=== PATIENT | female | born 1955 | race African-American/Black ===

== ENCOUNTER 2017-08-30 06:11 | Emergency (ER) | payer OTHER ==
[~2017-08-30] VITALS: Ht 167.6 cm; Wt 112.0 kg
[2017-08-30 07:09] LABS: BASOPHIL % 0.8 % (0-2); PLATELET COUNT 230 x10^3mcL (130-400); RED CELL DISTRIBUTION WIDTH 14.5 % (11.5-14.5)
[2017-08-30 07:11] LABS: CARBON DIOXIDE 28.7 mmol/L (21-32); CHLORIDE SERUM 106 mmol/L (98-107); CREATININE SERUM 0.8 mg/dL (0.6-1.0); GFR1 > 60 mL/min; GLUCOSE SERUM 115 mg/dL (74-106); POTASSIUM SERUM 3.9 mmol/L (3.5-5.1); SODIUM SERUM 142 mmol/L (136-145)
[2017-08-30 07:15] LABS: ALBUMIN 3.6 g/dL (3.4-5.0); ALKALINE PHOSPHATASE 77 U/L (46-116); ALT/SGPT 23 U/L (14-59); AST/SGOT 16 U/L (15-37); TOTAL PROTEIN, SERUM 7.6 g/dL (6.4-8.2)
[2017-08-30 07:43] VITALS: BP 140/76
== END 2017-08-30 08:14 | disposition home or self-care (01) ==
LOC: ED 06:11
PROVIDERS: Emergency Medicine
DX: H81.10 Benign paroxysmal vertigo, unspecified ear (principal)
CPT/HCPCS: 36415; 83880; J8597

== ENCOUNTER 2017-12-12 18:50 | Emergency (ER) | payer OTHER ==
[~2017-12-12] VITALS: Ht 167.6 cm; Wt 111.1 kg
[2017-12-12 18:59] VITALS: Ht 167.6 cm; Wt 111.1 kg
[2017-12-12 22:36] VITALS: BP 158/94
== END 2017-12-12 22:36 | disposition home or self-care (01) ==
LOC: ED 18:50
DX: M79.671 Pain in right foot (principal)